=== PATIENT | female | born 1990 | race Two or more races ===

== ENCOUNTER 2020-02-03 13:30 | Inpatient (IN) | payer OTHER ==
[2020-02-03] MEDS ORDERED: ELECTROLYTE-148 SOLN 1,000 ML IV SCH (13:45)
[2020-02-03] MEDS ORDERED: AMPICILLIN - 2 GM in SODIUM CHLORIDE 100 ML IVPB ONE (14:00)
[2020-02-03] MEDS ORDERED: AMPICILLIN SODIUM 2 GM VIAL ONE (14:04)
[2020-02-03] MEDS ORDERED: LABETALOL HCL 100 MG TABLET (FP) ONE ×2 (14:05→22:06)
[2020-02-03 14:24] VITALS: BMI 25.2
[2020-02-03] MEDS ORDERED: LABETALOL HCL 100 MG TABLET (FP) PO ONE ×2 (15:15→23:00)
[2020-02-03 15:21] LABS: BASO % 0.4 % (0-2.0); EOS % 0.7 % (0-4.5); HEMATOCRIT 34.3 % (32.4-45.2); HEMOGLOBIN 11.4 GM/dL (10.7-15.3); LYMPH % 18.8 % (8-40); MCH 28.6 pg (25.7-33.7); MCHC 33.3 g/dl (32.0-36.0); MEAN PLT VOLUME 9.6 fl (7.5-11.1); MONO % 6.1 % (3.8-10.2); PLATELET COUNT 176 K/MM3 (134-434); RBC 3.99 M/mm3 (3.60-5.2); RDW 13.9 % (11.6-15.6); WHITE BLOOD COUNT 8.6 K/mm3 (4.0-10.0)
[2020-02-03 15:27] LABS: INR 0.86 (0.83-1.09); PROTHROMBIN TIME (PATIENT) 10.1 SEC (9.7-13.0)
[2020-02-03 15:42] LABS: BLOOD UREA NITROGEN 11.7 mg/dL (7-18); CALCIUM 8.9 mg/dL (8.5-10.1); CREATININE 0.8 mg/dL (0.55-1.3); POTASSIUM 4.2 mmol/L (3.5-5.1); URIC ACID 3.8 mg/dL (2.6-7.2)
[2020-02-03 15:43] LABS: GAMMA GLUTAMYL TRANSPEPTIDASE 18 U/L (5-85); SGOT/AST 17 U/L (15-37); SGPT/ALT 21 U/L (13-61)
[2020-02-03] MEDS ORDERED: AMPICILLIN SODIUM 1 GM VIAL ONE (16:38)
[2020-02-03] MEDS ORDERED: OXYTOCIN 30 UNITS in 0.9% NS 30 UNIT/500 ML INFUS.BAG IVPB ONE (16:38)
[2020-02-03] MEDS ORDERED: OXYTOCIN 30 UNITS in 0.9% NS 30 UNIT/500 ML INFUS.BAG IVPB SCH (16:45)
--- NOTE | 2020-02-03 16:45 | HP ---
Past Medical History - Primary Care Physician PCP:: Karma Nix - Admission Chief Complaint: 29 yrs , 34.6/7 wks by dates & 35.6 wks by us is admitted for SPROM 12.00 noon . pt known c/o chr htn on po labetalol & [id number] asprin History of Present Illness: pnc at 3, [facility] [place] [facility] wt gain 27 lbs panel 07/29/19: OPos, hbsag neg, treponoma test neg, . Rubella immune, hIv neg, Cf screen neg, sickle neg , gc/ct neg 12/18/19: h/h 10.8/32.2, 1 hr gtt 127. Hep-cnr, hiv neg, treponoma neg .urine c/c enterococcci - treated with antibiotics . urie p/c ratio 0,11, chemprofile , liver enz wnl US neg NT screen, AFP borderline elevated suggestive of NTD last us 01/11/20 :32.2 wks sliup, vx, afi13.2, , efw 3'13"( 15 5tile) ,bpp8/8 pt was treated for CHR HTN Labetalol 100mg po bid , Asprin : 81 mg po daily History Source: Patient, Medical Record Limitations to Obtaining History: No Limitations - Past Medical History POST ACUTE CARE NURSE PRACTITIONER: Yes: Other (none) Cardiovascular: Yes: Other (none) Pulmonary: Yes: Other (none) Hepatobiliary: No: Hepatitis B, Hepatitis C Renal/: Yes: UTI (treated during pregn in 01/02) ...: 2 ...Para: 1 ...: 1 (07/04/13 , 34 wks 3" bay for 2 wks in nicu-epidural, Bx Outlook) ...Living Children: 1 ... Weeks Gestation by Dates: 34.6 ...EDC by Dates: 03/10/20 ...EDC by Sono: 03/03/20 (35.6 wks by us) Heme/Onc: Yes: Anemia Infectious Disease: No: AIDS, HIV, STD's Psych: No: Addictions, Anxiety, Bipolar, Depression, Panic, Psychosis, Schizophrenia, Other Endocrine: No: Diabetes Mellitus, Hyperthyroidism - Past Surgical History Past Surgical History: Yes: Cholecystectomy (lap choly in 2018) Hx Myomectomy: No Hx Transabdominal Cerclage: No - Smoking History Smoking history: Never smoked Have you smoked in the past 12 months: No - Alcohol/Substance Use Hx Alcohol Use: No History of Substance Use: reports: None Home Medications - Allergies Allergies/Adverse Reactions: Allergies Allergy/AdvReac Type Severity Reaction Status Date / Time almond AdvReac Intermediate Itching Verified 02/03/20 14:33 apple AdvReac Intermediate Hives Verified 02/03/20 14:29 hazelnut AdvReac Intermediate Itching Verified 02/03/20 14:34 pineapple AdvReac Intermediate Hives Verified 02/03/20 14:31 plum AdvReac Intermediate Hives Verified 02/03/20 14:31 - Home Medications Home Medications: Ambulatory Orders Labetalol HCl 100 mg PO BID MDD 2 02/03/20 Tablet 1 tablet PO DAILY 02/03/20 Review of Systems - Review of Systems Constitutional: reports: No Symptoms Eyes: reports: No Symptoms HENT: reports: No Symptoms (no headache), Other Neck: reports: No Symptoms Cardiovascular: reports: No Symptoms Respiratory: reports: No Symptoms Gastrointestinal: reports: No Symptoms Genitourinary: reports: Other (leaking af) Breasts: reports: No Symptoms Reported Musculoskeletal: reports: No Symptoms, Back Pain Integumentary: reports: No Symptoms Neurological: reports: No Symptoms Endocrine: reports: No Symptoms Hematology/Lymphatic: reports: No Symptoms Psychiatric: reports: No Symptoms Physical Exam - Maternity Vital Signs: Vital Signs Temperature 98.5 F 02/03/20 15:00 Pulse Rate 68 02/03/20 15:00 Respiratory Rate 18 02/03/20 15:00 Blood Pressure 122/77 02/03/20 15:00 O2 Sat by Pulse Oximetry (%) Selected Entries 02/03/20 02/03/20 14:16 16:00 Temperature 98.4 F 98.5 F Pulse Rate 77 Blood Pressure 130/91 139/92 Weight 152 lb Constitutional: Yes: Well Nourished, No Distress Eyes: Yes: WNL HENT: Yes: WNL Neck: Yes: WNL Cardiovascular: Yes: WNL Lungs: Clear to auscultation Breast(s): Yes: WNL - Abdominal Exam/OB Fundal Height: 35 Number of Fetuses: Single Presentation: Vertex Contractions: Yes Regularity: Irregular (4-6 min) Intensity: Mild Monitor Mode: External Heart Rate (range): 140 Heart Rate Location: [facility] Category: I Accelerations: Non-Uniform Decelerations: None - Vaginal Exam/OB Vaginal Bleeding: No Speculum Exam: No Dilatation (cm): 3 Effacement (%): 80 Amniotic Membrane Status: Ruptured Nitrazine Test: Positive Amniotic Fluid: Yes: Clear Presentation: Vertex/Position (exam at 4.45PM) Station: -2 - Physical Exam Musculoskeletal: Yes: WNL Extremities: Yes: WNL. No: Calf Tenderness Edema: No Integumentary: Yes: Tattoos Deep Tendon Reflex Grade: Normal but brisk +3 ...Motor Strength: WNL Psychiatric: Yes: WNL, Alert, Oriented - Labs Lab Results: CBC, BMP 02/03/20 14:36 02/03/20 14:36 Laboratory Tests 02/03/20 02/03/20 02/03/20 14:00 14:36 14:36 PT with INR 10.10 INR 0.86 PTT (Actin FS) 25.0 L Uric Acid 3.8 GGT AST ALT Ur Random Creatinine 80.0 U Random Total Protein 23.6 H Protein/Creatinin Ratio 0.3 02/03/20 14:36 PT with INR INR PTT (Actin FS) Uric Acid GGT 18 AST 17 ALT 21 Ur Random Creatinine U Random Total Protein Protein/Creatinin Ratio Laboratory Tests 02/03/20 14:36 Blood Type O POSITIVE Antibody Screen Negative Hemorrhage Risk Assessment - Risk Factors Medium Risk Factors: Yes: None Risk Score: 1 Risk Level: Medium Risk Problem List - Problems (1) 35 to 36 weeks gestation of Code(s): [id number] - (2) SPROM (prolonged spontaneous rupture of membranes) Code(s): O42.90 - RONALD ROM, 7TH0 BETW RUPT & ONST LABR, UNSP WEEKS OF GEST (3) Chronic hypertension affecting Code(s): O10.919 - UNSP PRE-EXISTING HTN COMP , UNSP TRIMESTER Assessment/Plan 29 ys 35.6 wks by sono & 34.6 weeks by dates admitted due to SPROM . Chr HTN on po Labetalol 100 mg id & prophylactic asprin Plan pitocin augmentation anticipate vag delivery labetalol po contd
[2020-02-03] MEDS ORDERED: PCA PUMP NR ONE ×2 (17:12→22:56)
[2020-02-03] MEDS ORDERED: FENTANYL/BUPIVACAINE/NS/PF - PCEA - 50 ML DISP.SYRIN EP ONE (17:12)
[2020-02-03] MEDS ORDERED: NALOXONE HCL 0.4 MG/ML VIAL IVPUSH PRN (17:20)
[2020-02-03] MEDS ORDERED: BUPIVACAINE HCL/PF 0.25% (2.5MG/ML) 10 ML VIAL ONE (17:21)
[2020-02-03] MEDS ORDERED: FENTANYL/BUPIVACAINE/NS/PF - PCEA - 50 ML DISP.SYRIN EP SCH (17:30)
[2020-02-03] MEDS ORDERED: AMPICILLIN - 1 GM in SODIUM CHLORIDE 100 ML IVPB SCH (18:00)
--- NOTE | 2020-02-03 20:15 | PN ---
Progress Note, Labor Vaginal Exam #1 Labor Exam Date: 02/03/20 Labor Exam Time: 20:00 Heart Rate (range): 120-130 Dilatation: 8 Effacement (%): 100 Amniotic Membrane Status: Ruptured Presentation: Vertex/Position Station: 0 (0/+1) Remarks: uc 2-3 min fhr cat-a1 pitocin 4ml/hr 4.50 PM Pit augmentation 5.[address] IV ampicillin prophylaxis , 2 doses completed , last at 6.00PM Selected Entries 02/03/20 02/03/20 02/03/20 18:45 19:00 19:15 Temperature 98.5 F Pulse Rate 68 74 70 Blood Pressure 130/81 122/88 134/79 Vaginal Exam #2 Labor Exam Date: 02/03/20 Labor Exam Time: 20:25 Heart Rate (range): 130-60 Dilatation: 10 Effacement (%): 100 Amniotic Membrane Status: Ruptured Presentation: Vertex/Position Station: +2 Remarks: uc q2 min fhr cat-2 pt pushing
[2020-02-03] MEDS ORDERED: BENZOCAINE 20% 57 GM BOTTLE TP PRN (21:01)
[2020-02-03] MEDS ORDERED: BISACODYL 10 MG SUPP.RECT RC PRN (21:01)
[2020-02-03] MEDS ORDERED: BENZOCAINE 28 GM HEMORRHOIDAL OINTMENT TP PRN (21:01)
[2020-02-03] MEDS ORDERED: WITCH HAZEL 50% (TUCKS) 40 PAD/JAR PAD TP PRN (21:01)
[2020-02-03] MEDS ORDERED: METHYLERGONOVINE MALEATE 0.2 MG/1 ML AMP IM PRN (21:01)
--- NOTE | 2020-02-03 21:13 | PN ---
Delivery - Delivery Vaginal Delivery: No Problems, Spontaneous (baby delievered vx , op position , cord around neck, & around body , untangled before delivery of shoulder,mouth & nose suction was done . placenta delievered completely, before that cord blood for gas & cord blood collection done . perineum & vagina intact . ebl 250 ml) Type of Anesthesia: Epidural Episiotomy/Laceration: None EBL (cc): 250 (gudino output 300 ml tristin color) Delivery, Single - Stages of Labor Date 1st Stage Initiatied: 02/03/20 Time 1st Stage Initiated: 14:00 Date 2nd Stage Initiated: 02/03/20 Time 2nd Stage Initiated: 20:25 Date of Delivery: 02/03/20 Time of Delivery: 20:38 Date Placenta Delivered: 02/03/20 Time Placenta Delivered: 20:45 Placenta: Yes: Spontaneous, Uterine Exploration - Condition of Wool Hanker/Advertising Sales Consultant Present: Yes Name: Inessa Harrsi Gender: Male Weight: 4 lb 11 oz Position: OP Total Hours ROM (Hrs/Mins): 8hrs 45 min clear - 1 Minute Total Score: 9 5 Minutes Total Score: 9 - [place] Feeding Plan Initial Plan: Elected not to breastfeed exclusively throughout hospitalization Remarks - Remarks Remarks: 29 yrs , 35.6 wks by ishmael, 34.6 wks by narda moreno GBS prophylaxis with Iv Ampicillin was given x2 doses h/o chr HTN rx po Labetalol 100 mg bid HELLP work Up ng, urine p/c ratio wnl BP 123/75, pulse 89/min
[2020-02-03 21:15] LABS: CORD BASE EXCESS -6.8 mmol/L (0-2); CORD HCO3 23.1 mmHg (20-29); CORD PCO2 65.2 mmHg (30-78); CORD pH 7.168 (7.14-7.44)
[2020-02-03] MEDS ORDERED: OXYTOCIN 20 UNITS in 0.9% NS 20 UNIT/1,000 ML INFUS.BAG IV SCH (21:15)
[2020-02-03 21:17] LABS: CORD BASE EXCESS -5.5 mmol/L (0-2); CORD HCO3 21.2 mmHg (20-29); CORD PCO2 45.5 mmHg (30-78); CORD pH 7.286 (7.14-7.44)
[2020-02-03] MEDS ORDERED: IBUPROFEN 600 MG TABLET (FP) PO ONE (22:07)
[2020-02-03] MEDS ORDERED: ACETAMINOPHEN 325 MG TABLET (FP) ONE (22:07)
[2020-02-03] MEDS ORDERED: OXYTOCIN 20 UNITS in 0.9% NS 20 UNIT/1,000 ML INFUS.BAG IV ONE (22:07)
[2020-02-03] MEDS: ACETAMINOPHEN 325 MG TABLET (FP) PO PRN (22:13)
[2020-02-03] MEDS: IBUPROFEN 600 MG TABLET (FP) PO PRN (22:14)
[2020-02-03] MEDS: LABETALOL HCL 100 MG TABLET (FP) PO SCH (22:15)
[2020-02-04] MEDS: ACETAMINOPHEN 325 MG TABLET (FP) PO PRN ×5 (02:05→23:16)
[2020-02-04] MEDS: IBUPROFEN 600 MG TABLET (FP) PO PRN ×5 (02:05→23:16)
[2020-02-04] MEDS: FERROUS SO4 325 MG TABLET (FP) PO SCH ×2 (07:47→18:01)
[2020-02-04 09:08] LABS: BASO % 0.5 % (0-2.0); EOS % 0.5 % (0-4.5); HEMATOCRIT 34.7 % (32.4-45.2); HEMOGLOBIN 11.4 GM/dL (10.7-15.3); LYMPH % 20.1 % (8-40); MCHC 32.9 g/dl (32.0-36.0); MEAN CELL VOLUME 88.1 fl (80-96); MEAN PLT VOLUME 9.8 fl (7.5-11.1); MONO % 5.4 % (3.8-10.2); NEUT % 73.5 % (42.8-82.8); PLATELET COUNT 165 K/MM3 (134-434); RBC 3.94 M/mm3 (3.60-5.2); RDW 13.8 % (11.6-15.6); WHITE BLOOD COUNT 13.3 K/mm3 (4.0-10.0)
--- NOTE | 2020-02-04 10:17 | PN ---
Post Progress Note - Subjective Subjective: c/o severe cramping voided after delivery Selected Entries 02/03/20 02/04/20 02/04/20 23:00 02:00 06:00 Blood Pressure 127/79 129/65 118/73 Post Day: 1 Type of Delivery: Vital Signs: Vital Signs Temperature 98 F 02/04/20 09:43 Pulse Rate 73 02/04/20 09:43 Respiratory Rate 18 02/04/20 09:43 Blood Pressure 114/76 02/04/20 09:43 O2 Sat by Pulse Oximetry (%) 100 02/03/20 22:54 Breast Exam: Yes: Soft, Other (will attempt use breast pump ) Uterus: Yes: Fundus Firm, Fundus below umbilicus Incision: Yes: Odilon intact Lochia: Yes: Rubra Lochia, amount: Moderate Extremities: Yes: Calves non-tender Perineum: Yes: Intact Activity: Ambulating - Labs Labs: CBC WBC 13.3 K/mm3 (4.0-10.0) H 02/04/20 08:35 RBC 3.94 M/mm3 (3.60-5.2) 02/04/20 08:35 Hgb 11.4 GM/dL (10.7-15.3) 02/04/20 08:35 Hct 34.7 % (32.4-45.2) 02/04/20 08:35 MCV 88.1 fl (80-96) 02/04/20 08:35 MCH 29.0 pg (25.7-33.7) 02/04/20 08:35 MCHC 32.9 g/dl (32.0-36.0) 02/04/20 08:35 RDW 13.8 % (11.6-15.6) 02/04/20 08:35 Plt Count 165 K/MM3 (134-434) 02/04/20 08:35 MPV 9.8 fl (7.5-11.1) 02/04/20 08:35 Absolute Neuts (auto) 9.7 K/mm3 (1.5-8.0) H 02/04/20 08:35 Neutrophils % 73.5 % (42.8-82.8) 02/04/20 08:35 Lymphocytes % 20.1 % (8-40) 02/04/20 08:35 Monocytes % 5.4 % (3.8-10.2) 02/04/20 08:35 Eosinophils % 0.5 % (0-4.5) 02/04/20 08:35 Basophils % 0.5 % (0-2.0) 02/04/20 08:35 Nucleated RBC % 0 % (0-0) 02/04/20 08:35 Retic Count 0.82 % (0.5-1.5) 02/03/20 14:36 Haptoglobin 118 mg/dL (33-278) 02/03/20 14:36 Problem List - Problems (1) 35 to 36 weeks gestation of Code(s): [id number] - (2) SPROM (prolonged spontaneous rupture of membranes) Code(s): O42.90 - RONALD ROM, 7TH0 BETW RUPT & ONST LABR, UNSP WEEKS OF GEST (3) Chronic hypertension affecting Code(s): O10.919 - UNSP PRE-EXISTING HTN COMP , UNSP TRIMESTER (4) (normal spontaneous vaginal delivery) Code(s): O80 - ENCOUNTER FOR FULL-TERM UNCOMPLICATED DELIVERY (5) Encounter for care and examination after delivery Code(s): Z39.2 - ENCOUNTER FOR ROUTINE FOLLOW-UP Assessment/Plan stable BP well controlled , on 100 mg bid po labetalol baby in nicu discharge tomorrow
[2020-02-04] MEDS: PRENATAL VITAMINS W/ FOLIC ACID TABLET (FP) PO SCH (10:22)
[2020-02-04] MEDS: LABETALOL HCL 100 MG TABLET (FP) PO SCH ×2 (10:22→21:31)
[2020-02-04 20:34] VITALS: PULSE 77
[2020-02-04] MEDS ORDERED: LABETALOL HCL 100 MG TABLET (FP) PO SCH (22:00)
[2020-02-04] MEDS ORDERED: SENNOSIDES/DOCUSATE COMBO (SENNA PLUS) TABLET (UD) PO PRN (22:00)
--- NOTE | 2020-02-05 08:47 | DS ---
Physical Examination Vital Signs: Vital Signs Temperature 98.4 F 02/04/20 20:10 Pulse Rate 77 02/04/20 20:10 Respiratory Rate 20 02/04/20 20:10 Blood Pressure 119/76 02/04/20 20:10 O2 Sat by Pulse Oximetry (%) 100 02/03/20 22:54 Constitutional: Yes: Well Nourished, No Distress, Calm Eyes: Yes: WNL, Conjunctiva Clear, EOM Intact HENT: Yes: WNL, Atraumatic, Normocephalic Neck: Yes: WNL, Supple, Trachea Midline Cardiovascular: Yes: WNL, Regular Rate and Rhythm Respiratory: Yes: WNL, Regular, CTA Bilaterally Gastrointestinal: Yes: WNL, Normal Bowel Sounds Musculoskeletal: Yes: WNL Extremities: Yes: WNL Edema: No Integumentary: Yes: WNL Neurological: Yes: WNL, Alert, Oriented ...Motor Strength: WNL Psychiatric: Yes: WNL Labs: CBC, BMP 02/04/20 08:35 02/03/20 14:36 Discharge Summary Problems reviewed: Yes Reason For Visit: ADMISSION OF LABOR Current Active Problems 35 to 36 weeks gestation of (Acute) Chronic hypertension affecting (Acute) Encounter for care and examination after delivery (Acute) (normal spontaneous vaginal delivery) (Acute) SPROM (prolonged spontaneous rupture of membranes) (Acute) Procedures: Principal: Hospital Course: Patient presented in labor She had an uncomplicated Shet met all milestones She was discharged home in stable condition Condition: Stable - Instructions Diet, Activity, Other Instructions: Post Instructions DIET: Continue good diet high in protein, calcium, and iron rich foods. Drink at least eight (8) glasses of water daily in addition to other fluids. ___ Regular diet, preferable Lo Salt MEDICATIONS: Continue vitamins and iron as previously directed. Motrin and Tylenol may be taken for minor discomfort. ACTIVITY: Mild to moderate exercise may be started in two (2) weeks. Take frequent rest periods. Resume normal activity after six (6) week check up. WOUND CARE OF OPERATIVE SITE: Continue use of perineal bottle until vaginal discharge stops. Keep area clean. Shower daily. Keep abdominal wound dry. Report any drainage or redness to physician. Tub baths, tampons and douches are not permitted for [address] Breast feeding by using breast pump Bottle feeding BREAST CARE: (For those that are not breast feeding): If engorgement occurs: Wear tight fitting bra. Take Tylenol or Motrin for pain. Apply cold packs (ice in bags to each breast ) FAMILY PLANNING: There are many control alternatives to pursue and they should be discussed at your first office visit. You may resume sexual activity after your six (6) week check up. (Remember, breast feeding is not a contraceptive) NEXT PHYSICIAN APPOINTMENT: Be certain to call for a 2 (2) week appointment, unless otherwise directed. rtc BP check & pp visit Call Clinic or got to Emergency Dept if you have any of the following: Heavy vaginal bleeding Painful urination Leg pain Unusual odor noted to vaginal bleeding High fever Red streaking noted on breast Referrals: Karma Nix MD [Staff Physician] - Disposition: HOME - Home Medications Comprehensive Discharge Medication List: Ambulatory Orders Labetalol HCl 100 mg PO BID MDD 2 02/03/20 Tablet 1 tablet PO DAILY 02/03/20 Acetaminophen [Tylenol .Regular Strength -] 650 mg PO Q3H PRN tablet 02/04/20 Ibuprofen [Motrin -] 600 mg PO Q4H PRN #20 tablet 02/04/20 Labetalol HCl [Normodyne -] 100 mg PO BID #30 tablet 02/04/20 Miscellaneous Medical Supply [Breast Pump, Electronic] 1 each NR ASDIR #1 unit 02/04/20 Vitamins (Sjr) - 1 tab PO DAILY #30 tablet 02/04/20
[2020-02-05] MEDS: ACETAMINOPHEN 325 MG TABLET (FP) PO PRN (09:08)
[2020-02-05] MEDS: IBUPROFEN 600 MG TABLET (FP) PO PRN (09:08)
[2020-02-05] MEDS: FERROUS SO4 325 MG TABLET (FP) PO SCH (09:08)
[2020-02-05] MEDS: LABETALOL HCL 100 MG TABLET (FP) PO SCH (09:08)
[2020-02-05] MEDS: PRENATAL VITAMINS W/ FOLIC ACID TABLET (FP) PO SCH (09:09)
[2020-02-05 10:17] VITALS: BP 120/65; TEMP 99
== END 2020-02-05 12:10 | disposition home or self-care (01) | DRG 806 ==
LOC: JLDR 13:30 → J3W 22:52
PROVIDERS: ADMIT Obstetrics & Gynecology; ATTEND Obstetrics & Gynecology
PROC: 10E0XZZ Delivery of Products of Conception, External Approach (ICD-10-PCS; principal; 2020-02-03)
DX: O60.14X0 Preterm labor third trimester with preterm delivery third trimester, not applicable or unspecified (principal); O10.92 Unspecified pre-existing hypertension complicating childbirth; Z37.0 Single live birth; Z3A.35 35 weeks gestation of pregnancy; O42.013 Preterm premature rupture of membranes, onset of labor within 24 hours of rupture, third trimester; O69.81X0 Labor and delivery complicated by cord around neck, without compression, not applicable or unspecified; Z86.2 Personal history of diseases of the blood and blood-forming organs and certain disorders involving the immune mechanism; Z87.440 Personal history of urinary (tract) infections; Z91.018 Allergy to other foods; Z90.49 Acquired absence of other specified parts of digestive tract
CPT/HCPCS: 36415; 36600; 59409; 80048; 82565; 82803; 82977; 83010; 84156; 84450; 84460; 84550; 85025; 85044; 85610; 85730; 86780; 86850; 86900; 86901; U0003